=== PATIENT | male | born 1945 | race Caucasian/White ===

== ENCOUNTER → 2016-12-17 | Outpatient (CLI) | payer MEDICARE, OTHER ==
[~2016-12-17] MED LIST: AMLODIPINE BESY10 MG PO; ASPIRIN81 M1 PO; AZOR 10-40 MG1 UDTAB PO; CARVEDILOL25 MG PO; CHANTIX1 DOSE-PAC PO; CLARITIN10 M2 PO; COMBIVENT U/D3 M2 INH; COREG PO; CRESTOR10 MG PO; CRESTOR5 MG PO; CYANOCOBALAMIN; DILTIAZEM 24HR120 MG PO; DOCUSATE SODIU100 MG PO; FERROUS SULFATE PO; FUROSEMIDE40 MG PO; HYDROCHLOROTH12.5 M1 PO; HYDROCODONE-APA1 T57 PO; IRON INJECTION; IRON1 TA1 PO; JANUMET 50-1,1 UDTAB PO; K-DUR20 ME1 PO; KCL PO; LASIX20 MG PO; LIPITOR40 MG PO; LO-DOSE ASPIRIN81 M1 PO; LOPRESSOR PO; NEPHROCAPS1 CAP PO; PLAVIX PO; PROBIOTIC1 EAC3 PO; TRADJENTA5 MG PO; TRICOR145 MG PO; TRIPHROCAPS SOFT1 MG PO; VITAMIN B12 INJ; VITAMIN D 2 PO; VITAMIN D250000 UNIT PO; WELCHOL625 MG PO; ZESTRIL10 M2 PO; ZETIA PO; [UNRECOGNIZED DRUG - OTHER] PO
== END | disposition home or self-care (01) ==
LOC: CLAB 13:06
DX: D64.9 Anemia, unspecified (principal); I95.9 Hypotension, unspecified
CPT/HCPCS: 36415; 86850; 86900; 86901; 86923

== ENCOUNTER → 2016-12-18 | Outpatient (CLI) | payer MEDICARE, OTHER | END | disposition home or self-care (01) | LOC: CSSDAY 08:09 | DX: D64.9 Anemia, unspecified (principal); I95.9 Hypotension, unspecified | CPT/HCPCS: 36430; J1200; J1940; P9016 ==

== ENCOUNTER → 2016-12-19 | Outpatient (CLI) | payer MEDICARE, OTHER ==
--- NOTE | ~2016-12-19 | CT57 ---
[facility] A Service of [facility] RADIOLOGY TEXT RESULTS PATIENT: MICHAEL GALO [facility] UNIT #: [id number] AGE: [address]: Celestine Rush MD SEX: M ORDER DR: [id number] [place] [id number] [facility]. [place], [place] [address] [id number] O MR#: [id number] Acc #: [id number] NAME: MICHAEL GALO : 1945 SEX: M STUDY DATE/TIME: 12/19/2016 14:14 UNIT: [facility] ROOM: STUDY DESCRIPTION: CT Chest Wo Cont Attending Physician: Celestine Rush M.D. Referring Physician: Celestine Rush M.D. Ordering Physician: Celestine Rush M.D. Primary Care Physician: Jose Lund M.D. MEDICAL IMAGING REPORT This report is preliminary unless electronic signature is present EXAM CT Chest INDICATIONS Lung cancer. Left upper lobe pulmonary malignancy. Restaging. Observation for metastatic disease. COMPARISON PET/CT dated 07/23/[address] chest dated 03/12/2016. TECHNIQUE This CT exam was performed with one or more of the following radiation dose reduction techniques: automatic control, adjustment of mA and/or kV according to patient size, and iterative reconstruction. FINDINGS The patient has undergone interval left upper lobectomy. There is a large soft tissue mass in the left chest wall. The soft tissue mass measures 9.2 x 6.3 x 6.8 cm. The mass is centered about the left fifth rib. There is a second chest wall/pleural mass measuring 5.7 x 6.4 cm. This is between the seventh and eighth ribs laterally. There is an area of pleural thickening in the anterior aspect of the pleura measuring 3.2 x 1.8 cm. No pathologically enlarged mediastinal or hilar lymph nodes. There is a spiculated irregular nodule in the right lung apex measuring up to 2 cm. This is unchanged from the prior PET/CT. There is no pericardial effusion. There is a small left pleural effusion. Limited images of the upper abdomen were obtained. [facility] A Service of [facility] & [facility] RADIOLOGY TEXT RESULTS PATIENT: MICHAEL GALO LOCATION: [facility] : 44 UNIT #: [id number] AGE: [address]: Celestine Rush MD SEX: M ORDER DR: IMPRESSION 1. Interval changes of left upper lobectomy. 2. Development of large pleural/chest wall masses in the left hemithorax. The largest measures up to 9.2 cm and is consistent with disease progression. 3. Spiculated area of pleural thickening in the right lung apex is unchanged. Dictated by... Darren Kay M.D. THIS IS AN ELECTRONICALLY VERIFIED REPORT Darren Kay M.D. at 12/20/2016 8:17 AM NATALI/france TD: 12/19/2016 17:52 JOB #: [id number] MEDICAL IMAGING REPORT COPY
== END | disposition home or self-care (01) ==
LOC: CCAT 13:14
DX: C34.12 Malignant neoplasm of upper lobe, left bronchus or lung (principal); Z90.2 Acquired absence of lung [part of]
CPT/HCPCS: 71250

== ENCOUNTER → 2017-01-16 | Outpatient (CLI) | payer MEDICARE, OTHER ==
--- NOTE | ~2017-01-16 | XA52 ---
[facility] A Service of [facility] RADIOLOGY TEXT RESULTS PATIENT: MICHEAL GALO [facility] : [facility] UNIT #: [id number] AGE: [address]: Celestine Rush MD SEX: M ORDER DR: [id number] [address] [place], [place] [address] [id number] O MR#: [id number] Acc #: [id number] NAME: MICHAEL GALO : 1945 SEX: M STUDY DATE/TIME: 01/16/2017 10:34 UNIT: [facility] ROOM: STUDY DESCRIPTION: XA BX Bone Superficial Attending Physician: Celestine Rush M.D. Ordering Physician: Celestine Rush M.D. Primary Care Physician: Jose Lund M.D. MEDICAL IMAGING REPORT This report is preliminary unless electronic signature is present PROCEDURE Ultrasound-guided biopsy of a left chest wall mass. DATE OF EXAM 01/16/2017 INDICATIONS 71-year-old male with history of lung cancer. He has masses now involving 2 of his left sided ribs. These were hypermetabolic on PET scan and are suspicious for metastases. Biopsy requested. Risks, benefits, and alternatives of the procedure were discussed with the patient, an informed consent was obtained. In the procedure room, a time-out was performed confirming correct patient and procedure. All elements of maximum sterile-barrier technique utilized according to the guidelines appropriate for the procedure. COMPARISON Comparison is made with PET/CT from 12/30/2016. The largest lesion was identified under ultrasound. TECHNIQUE/FINDINGS Overlying skin was prepped and draped in the usual sterile fashion. 1% lidocaine was utilized to anesthetize the skin and underlying subcutaneous tissues. Next, under ultrasound guidance, 3 core biopsies of this mass were obtained using an 18-gauge needle and a sample sent to Pathology. The patient tolerated the procedure well without immediate complications. IMPRESSION Technically successful ultrasound-guided biopsy of a left chest wall mass. Dictated by... [facility] A Service of [facility] RADIOLOGY TEXT RESULTS PATIENT: MICHAEL GALO LOCATION: [facility] : 44 UNIT #: [id number] AGE: [address]: Celestine Rush MD SEX: M ORDER DR: Mustapha Sykes M.D. THIS IS AN ELECTRONICALLY VERIFIED REPORT Mustapha Sykes M.D. at 01/17/2017 2:34 PM ILEANA/aden TD: 01/16/2017 19:17 JOB #: [id number] MEDICAL IMAGING REPORT Page 1 of 1 COPY
--- NOTE | ~2017-01-16 | CR71 ---
[facility] A Service of [facility] RADIOLOGY TEXT RESULTS PATIENT: MICHAEL GALO LOCATION: [facility] : 44 UNIT #: [id number] AGE: [address]: Celestine Rush MD SEX: M ORDER DR: [id number] [facility] [address] [place], [place] [address] [id number] O MR#: [id number] Acc #: [id number] NAME: MICHAEL GALO : 1945 SEX: M STUDY DATE/TIME: 01/16/2017 11:12 UNIT: [facility] ROOM: STUDY DESCRIPTION: CR Chest Single View Attending Physician: Celestine Rush M.D. Primary Care Physician: Jose Lund M.D. MEDICAL IMAGING REPORT This report is preliminary unless electronic signature is present EXAM Portable chest. INDICATION Status post chest wall biopsy. COMPARISON PET/CT from 12/30/2016 and a chest x-ray from 10/24/2016. FINDINGS Status post left chest wall biopsy. There is no evidence of a pneumothorax. There are postoperative changes of left upper lobectomy. Densities overlying the mid and lower chest wall on the left consistent with the patient's known chest wall masses. Heart size stable. Prior sternotomy. IMPRESSION No evidence of pneumothorax. Dictated by... Mustapha Sykes M.D. THIS IS AN ELECTRONICALLY VERIFIED REPORT Mustapha Sykes M.D. at 01/16/2017 4:50 PM ILEANA/janay TD: 01/16/2017 12:39 JOB #: [id number] MEDICAL IMAGING REPORT Page 1 of 1 COPY
[2017-01-16 08:13] LABS: HEMATOCRIT 22.2 % (38.0-50.0); HEMOGLOBIN 7.1 gm/dL (13.0-16.0); MEAN CELL VOLUME 91.9 FL (83-96); MEAN CORPUSCULAR HEMOGLOBIN 29.5 PG (28-34); MEAN CORPUSCULAR HGB CONC 32.1 g/dL (30-36); MEAN PLATELET VOLUME 8.3 FL (6.5-11.5); RED BLOOD COUNT 2.42 X10e (3.90-5.60); RED CELL DISTRIBUTION WIDTH 20.5 % (11.0-15.5); WHITE BLOOD COUNT 19.6 X10e3 (4.0-10.5)
[2017-01-16 08:33] LABS: INR 1.3; PARTIAL THROMBOPLASTIN TIME 25.9 SECONDS (23.5-31.3); PROTHROMBIN TIME (PATIENT) 13.3 SECONDS (9.6-11.5)
== END | disposition home or self-care (01) ==
LOC: CIVR 07:43
PROVIDERS: Surgery
DX: C76.1 Malignant neoplasm of thorax (principal); Z85.118 Personal history of other malignant neoplasm of bronchus and lung; D64.9 Anemia, unspecified
CPT/HCPCS: 36415; 71010; 76942; 77002; 85027; 85610; 85730; 88305; J2250; J3010

== ENCOUNTER → 2017-01-29 | Outpatient (CLI) | payer MEDICARE, OTHER ==
--- NOTE | ~2017-01-29 | MR18 ---
[facility] A Service of [facility] & [facility] RADIOLOGY TEXT RESULTS PATIENT: MICHAEL GALO LOCATION: [facility] : 43 UNIT #: [id number] AGE: [address]: Khris Dhillon MD SEX: M ORDER DR: [id number] [facility] [address] [place] [facility]. [place], [place] [address] [id number] O MR#: [id number] Acc #: [id number] NAME: MICHAEL GALO : 1945 SEX: M STUDY DATE/TIME: 01/29/2017 8:14 UNIT: [facility] ROOM: STUDY DESCRIPTION: MR Brain Wo Contrast Attending Physician: Khris Dhillon M.D. Referring Physician: Khris Dhillon M.D. Ordering Physician: Khris Dhillon M.D. Primary Care Physician: Jose Lund M.D. MRI CENTER REPORT This report is preliminary unless electronic signature is present. EXAM MRI of the brain without contrast dated 01/29/2017 COMPARISON MRI brain with and without contrast dated 07/25/2016. HISTORY Follow-up to evaluate for metastasis to the brain. History of colon cancer and lung cancer. Patient has difficulty walking and difficulty with speech for last 2 weeks. FINDINGS Multisequence, multiplanar imaging of the brain was obtained without contrast as per the doctor's request. Doctor did not want enhancement obtained. Thick slices through the sella with the pituitary gland, pineal region and upper cervical spine do not demonstrate any significant abnormality. Age-appropriate parenchymal volume loss is seen. There are scattered hyperintense T2 small lesions in the brain predominantly involving the periventricular white matter and to a lesser degree in the deandre. Vascular flow voids of the major cerebral arteries and dural venous sinuses are patent. S-shaped nasal septal deviation is seen. Status post bilateral cataract surgery. Mild bilateral mastoid mucosal thickening is noted. IMPRESSION 1. Scattered few hyperintense T2 signal lesions are noted in the brain involving the white matter, likely related to mild chronic microvascular ischemic change or migraine based on age and statistics. 2. No acute or significant intracranial abnormality. 3. S-shaped nasal septal deviation. [facility]. [facility] A Service of [facility] & [facility] RADIOLOGY TEXT RESULTS PATIENT: MICHAEL GALO [facility] : 44 UNIT #: [id number] AGE: [address]: Khris Dhillon MD SEX: M ORDER DR: Dictated by... Verna Mann M.D. THIS IS AN ELECTRONICALLY VERIFIED REPORT Verna Mann M.D. at 01/30/2017 3:46 PM CPR/rnr TD: 01/29/2017 14:32 JOB #: [id number] MRI CENTER REPORT Page 1 of 1 COPY
== END | disposition home or self-care (01) ==
LOC: CMRI 07:34
DX: C34.90 Malignant neoplasm of unspecified part of unspecified bronchus or lung (principal); G93.89 Other specified disorders of brain; N18.3 Chronic kidney disease, stage 3 (moderate); D63.1 Anemia in chronic kidney disease; E53.9 Vitamin B deficiency, unspecified; D50.9 Iron deficiency anemia, unspecified; J34.2 Deviated nasal septum
CPT/HCPCS: 70551

== ENCOUNTER → 2017-02-07 | Outpatient (CLI) | payer MEDICARE, OTHER | END | disposition home or self-care (01) | LOC: CSSDAY 09:59 | DX: D64.9 Anemia, unspecified (principal); C34.90 Malignant neoplasm of unspecified part of unspecified bronchus or lung | CPT/HCPCS: 36415; 36430; 86850; 86900; 86901; 86923; J1200; J1940; P9016 ==

== ENCOUNTER → 2017-02-12 | Outpatient (CLI) | payer MEDICARE, OTHER ==
[2017-02-12 12:06] LABS: HEMATOCRIT 23.3 % (38.0-50.0); HEMOGLOBIN 7.3 gm/dL (13.0-16.0); MEAN CELL VOLUME 90.7 FL (83-96); MEAN CORPUSCULAR HEMOGLOBIN 28.4 PG (28-34); MEAN CORPUSCULAR HGB CONC 31.3 g/dL (30-36); MEAN PLATELET VOLUME 8.2 FL (6.5-11.5); RED BLOOD COUNT 2.57 X10e (3.90-5.60); RED CELL DISTRIBUTION WIDTH 19.5 % (11.0-15.5); WHITE BLOOD COUNT 19.8 X10e3 (4.0-10.5)
[2017-02-12 12:07] LABS: URINE APPEARANCE CLOUDY; URINE BLOOD NEG (NEG); URINE COLOR DK YELLOW; URINE GLUCOSE NEG (NEG); URINE KETONE NEG (NEG); URINE LEUKOCYTE ESTERASE TRACE (NEG); URINE NITRATE NEG (NEG); URINE PROTEIN 1+ (NEG); URINE SPECIFIC GRAVITY 1.017 (1.003-1.035)
[2017-02-12 12:10] LABS: URINE BACTERIA AUWI NEG (NEGATIVE); URINE SQUAMOUS EPITHELIAL CELL OCC /[HPF]
[2017-02-12 12:19] LABS: URINE BILIRUBIN NEG (NEG)
[2017-02-12 12:31] LABS: CREATININE,RANDOM URINE 151 mg/dL; TOTAL PROTEIN,RANDOM URINE 83 mg/dl (<10)
[2017-02-12 12:39] LABS: ALBUMIN SERUM 1.8 g/dL (3.5-5.0); BILIRUBIN,TOTAL 1.2 mg/dL (0.2-2.0); BUN/CREATININE RATIO 25.71; CALCIUM SERUM 10.8 mg/dL (8.4-10.2); CREATININE SERUM 1.4 mg/dL (0.6-1.4); GLOM FILT RATE Estimated 49.9 mL/min (>60); MAGNESIUM 1.9 mg/dL (1.6-3.0); PHOSPHOROUS 2.8 mg/dL (2.5-4.6); POTASSIUM 3.9 mmol/L (3.5-5.1); PROTEIN TOTAL SERUM 6.5 g/dL (6.0-8.3)
[2017-02-19 05:16] LABS: CALCIUM (PTHINTACT) 10.6 mg/dL (8.6-10.3)
== END | disposition home or self-care (01) ==
LOC: CLAB 09:33
PROVIDERS: Internal Medicine Nephrology
DX: N18.3 Chronic kidney disease, stage 3 (moderate) (principal)
CPT/HCPCS: 36415; 80053; 81003; 82310; 82570; 83735; 83970; 84100; 84156; 85027

== ENCOUNTER → 2017-05-13 | Outpatient (CLI) | payer MEDICARE, OTHER ==
--- NOTE | ~2017-05-13 | CT55 ---
[facility] A Service of [facility] & [facility] RADIOLOGY TEXT RESULTS PATIENT: MICHAEL GALO LOCATION: [facility] : 43 UNIT #: [id number] AGE: [address]: Khris Dhillon MD SEX: M ORDER DR: [id number] [facility] [address] [facility]. [place], [place] [address] [id number] O MR#: [id number] Acc #: [id number] NAME: MICHAEL GALO : 1945 SEX: M STUDY DATE/TIME: 05/13/2017 9:39 UNIT: [facility] ROOM: STUDY DESCRIPTION: CT Chest W Con Attending Physician: Khris Dhillon M.D. Referring Physician: Khris Dhillon M.D. Ordering Physician: Khris Dhillon M.D. Primary Care Physician: Jose Lund M.D. MEDICAL IMAGING REPORT This report is preliminary unless electronic signature is present EXAM CT scan of the chest with contrast. INDICATIONS Followup from lung cancer. Routine surveillance. TECHNIQUE CT scan of the chest was performed following the administration of IV contrast. Coronal and sagittal reformatted images were obtained. This CT exam was performed with one or more of the following radiation dose reduction techniques: automatic exposure control, adjustment of mA and/or kV according to patient size, and iterative reconstruction. COMPARISON Comparison with 01/30/2017. FINDINGS Compared with the recent PET CT from January, there has been interval decrease in size of the larger of the 2 left chest wall masses. This mass now measures 6.6 x 3.8 cm. Previously it measured roughly 11.2 x 7 cm. The other more inferior chest wall mass is also smaller as well, measuring about 6.1 x 5.4 cm. Previously was about 7.5 x 6.4 cm. The patient had a prior left upper lobectomy. There is stable presumed scarring in the right lung apex. No new pulmonary nodules. No suspicious lymphadenopathy. Scant pleural fluid at the left base. Limited imaging of the upper abdomen is unremarkable. Bone windows re-demonstrate destructive changes of multiple left-sided ribs. These are in the region of the chest wall masses. IMPRESSION Interval decrease in size of 2 left-sided chest wall masses. The more superior mass has significantly decreased in size and the more inferior STS. [facility] A Service of [facility] & [facility] RADIOLOGY TEXT RESULTS PATIENT: MICHAEL GALO LOCATION: [facility] : 43 UNIT #: [id number] AGE: [address]: Khris Dhillon MD SEX: M ORDER DR: mass is slightly decreased in size. Dictated by... Mustapha Sykes M.D. THIS IS AN ELECTRONICALLY VERIFIED REPORT Mustapha Sykes M.D. at 05/13/2017 4:36 PM ARS/gz TD: 05/13/2017 13:41 JOB #: [id number] MEDICAL IMAGING REPORT Page 1 of 1 COPY
[2017-05-13 13:26] LABS: POC - CREATININE 0.83 mg/dL (0.64-1.27); POC - GFR >60.0 mL/min (>60)
== END | disposition home or self-care (01) ==
LOC: CCAT 09:00
PROVIDERS: Internal Medicine Medical Oncology
DX: C34.90 Malignant neoplasm of unspecified part of unspecified bronchus or lung (principal); D63.1 Anemia in chronic kidney disease; E53.9 Vitamin B deficiency, unspecified; N18.3 Chronic kidney disease, stage 3 (moderate); D50.9 Iron deficiency anemia, unspecified
CPT/HCPCS: 71260; 82565; Q9967